=== PATIENT | female | born 1935 | race Two or more races ===

== ENCOUNTER 2016-10-26 16:46 | Emergency (ER) | payer OTHER ==
[~2016-10-26] VITALS: Ht 162.6 cm; Wt 87.3 kg
[~2016-10-26 16:46] MED LIST: ABAC1TAB15 PO; ALBU8.5H3 IH; AMIT25TA34 PO; ASPI-1061 PO; ATAZ100 PO; BUPR-47 PO; EPIV150 PO; LOPE2CAP PO; MULT-1203 PO; TRAM50TA4 PO
[2016-10-26] MEDS ORDERED: METF500T4 PO (17:05)
[2016-10-26] MEDS ORDERED: ABAC1TAB15 PO (17:05)
[2016-10-26] MEDS ORDERED: RISP2 PO (17:05)
[2016-10-26] MEDS ORDERED: SERT50TA12 PO (17:05)
[2016-10-26] MEDS ORDERED: TIMO.5OS OU (17:05)
[2016-10-26] MEDS ORDERED: FAMO20 PO (17:05)
[2016-10-26 17:12] LABS: GLUCOSE,POINT OF CARE 120 MG/DL (70-110)
[2016-10-26 17:42] LABS: BASOPHILS % (AUTO) 0.5 % (0.0-2.0); EOSINOPHILS % (AUTO) 3.7 % (1.0-6.0); HEMATOCRIT 41.6 % (36-46); HEMOGLOBIN 13.2 g/dL (12.0-16.0); LYMPHOCYTES # (AUTO) 3.9 K/uL (1.0-4.8); LYMPHOCYTES % (AUTO) 29.2 % (22.0-44.0); MEAN CORPUSCULAR HEMOGLOBIN 30.4 pg (26.0-34.0); MEAN CORPUSCULAR HGB CONC 31.7 G/dL (31.0-37.0); MEAN CORPUSCULAR VOLUME 96 fL (80-100); MONOCYTES # (AUTO) 0.9 K/uL (0.1-1.0); MONOCYTES % (AUTO) 6.6 % (2.0-9.0); PLATELET COUNT (AUTO) 284 K/uL (150-450); RED BLOOD CELL COUNT(AUTO) 4.34 MIL/uL (4.00-5.20); RED CELL DISTRIBUTION WIDTH 13.8 % (11.5-14.5); WHITE BLOOD COUNT (AUTO) 13.3 K/uL (4.5-11.0)
[2016-10-26 17:52] LABS: CALCIUM, TOTAL 8.9 mg/dL (8.8-10.5); CREATININE 1.63 mg/dL (0.60-1.30); POTASSIUM 4.5 mmol/L (3.5-5.1)
[2016-10-26 17:58] LABS: ALBUMIN 3.4 g/dL (3.4-5.0); BILIRUBIN,TOTAL 0.2 mg/dL (0.1-1.0); TOTAL PROTEIN, SERUM 7.9 g/dL (6.4-8.2)
[2016-10-26] MEDS ORDERED: 0.9% SODIUM CHLORIDE 5 ML NEB SOLUTION NEB ONE (19:24)
[2016-10-26] MEDS: ALBUTEROL SULFATE 2.5 MG/0.5 ML NEB SOLUTION NEB ONE (19:27)
[2016-10-26 20:20] VITALS: BP 126/81
== END 2016-10-26 20:41 | disposition home or self-care (01) ==
LOC: EMS 16:51
DX: J40 Bronchitis, not specified as acute or chronic (principal); J45.909 Unspecified asthma, uncomplicated; Z79.82 Long term (current) use of aspirin; Z87.891 Personal history of nicotine dependence
CPT/HCPCS: 82962; 93005; 94640; 99285

== ENCOUNTER 2016-11-21 16:01 | Emergency (ER) | payer OTHER ==
[~2016-11-21] VITALS: Ht 170.2 cm; Wt 72.7 kg
[~2016-11-21 16:01] MED LIST changes: -ALBU8.5H3 IH; -AMIT25TA34 PO; -ATAZ100 PO; -EPIV150 PO; +FAMO20 PO; -LOPE2CAP PO; +METF500T4 PO; +RISP2 PO; +SERT50TA12 PO; +TIMO.5OS OU
[2016-11-21] MEDS ORDERED: DIPH25 PO (16:19)
[2016-11-21] MEDS ORDERED: ACETAMINOPHEN 325 MG TABLET PO ONE (16:45)
[2016-11-21 18:04] LABS: BASOPHILS % (AUTO) 0.6 % (0.0-2.0); EOSINOPHILS % (AUTO) 3.6 % (1.0-6.0); HEMATOCRIT 38.7 % (36-46); HEMOGLOBIN 12.9 g/dL (12.0-16.0); LYMPHOCYTES # (AUTO) 3.9 K/uL (1.0-4.8); MEAN CORPUSCULAR HEMOGLOBIN 31.7 pg (26.0-34.0); MEAN CORPUSCULAR HGB CONC 33.3 G/dL (31.0-37.0); MEAN CORPUSCULAR VOLUME 95 fL (80-100); MONOCYTES # (AUTO) 0.8 K/uL (0.1-1.0); MONOCYTES % (AUTO) 7.5 % (2.0-9.0); NEUTROPHILS # (AUTO) 5.4 K/uL (1.8-7.7); NEUTROPHILS % (AUTO) 51.3 % (40.0-70.0); PLATELET COUNT (AUTO) 265 K/uL (150-450); RED BLOOD CELL COUNT(AUTO) 4.07 MIL/uL (4.00-5.20); WHITE BLOOD COUNT (AUTO) 10.4 K/uL (4.5-11.0)
[2016-11-21 18:15] LABS: CALCIUM, TOTAL 8.7 mg/dL (8.8-10.5); CREATININE 1.5 mg/dL (0.60-1.30); POTASSIUM 3.8 mmol/L (3.5-5.1)
[2016-11-21 18:28] LABS: ALBUMIN 3.3 g/dL (3.4-5.0); BILIRUBIN,TOTAL 0.2 mg/dL (0.1-1.0); TOTAL PROTEIN, SERUM 7.3 g/dL (6.4-8.2)
[2016-11-21 19:18] VITALS: BP 134/86
== END 2016-11-21 19:19 | disposition home or self-care (01) ==
LOC: EMS 16:06
DX: J45.909 Unspecified asthma, uncomplicated (principal); Z87.891 Personal history of nicotine dependence; Z79.82 Long term (current) use of aspirin
CPT/HCPCS: 71020; 83605; 87040; 99285

== ENCOUNTER 2017-12-13 14:49 | Emergency (ER) | payer OTHER ==
[~2017-12-13] VITALS: Ht 160 cm; Wt 87.3 kg
[~2017-12-13 14:49] MED LIST changes: -ASPI-1061 PO; +ASPI81TA87 PO; +DIPH25 PO; -METF500T4 PO; +METF500T6 PO
[2017-12-13] MEDS ORDERED: OMEP20 PO (14:58)
[2017-12-13] MEDS ORDERED: DOCU250C91 PO (14:58)
[2017-12-13 15:08] LABS: GLUCOSE,POINT OF CARE 195 MG/DL (70-110)
[2017-12-13] MEDS ORDERED: SODIUM CHLORIDE 0.9% 1,000 ML IV ONE (16:00)
[2017-12-13] MEDS ORDERED: ACETAMINOPHEN 500 MG TABLET PO ONE (16:00)
[2017-12-13 16:25] LABS: CALCIUM, TOTAL 8.7 mg/dL (8.8-10.5); CREATININE 1.65 mg/dL (0.60-1.30); POTASSIUM 3.8 mmol/L (3.5-5.1)
[2017-12-13 16:31] LABS: ALBUMIN 3.4 g/dL (3.4-5.0); BILIRUBIN,TOTAL 0.5 mg/dL (0.1-1.0); TOTAL PROTEIN, SERUM 7.3 g/dL (6.4-8.2)
[2017-12-13 17:13] LABS: BASOPHILS % (AUTO) 0.7 % (0.0-2.0); EOSINOPHILS % (AUTO) 0.7 % (1.0-6.0); HEMATOCRIT 36.7 % (36-46); HEMOGLOBIN 12.2 g/dL (12.0-16.0); LYMPHOCYTES # (AUTO) 2.3 K/uL (1.0-4.8); MEAN CORPUSCULAR HEMOGLOBIN 31.6 pg (26.0-34.0); MEAN CORPUSCULAR HGB CONC 33.1 G/dL (31.0-37.0); MEAN CORPUSCULAR VOLUME 96 fL (80-100); MONOCYTES # (AUTO) 0.8 K/uL (0.1-1.0); MONOCYTES % (AUTO) 6.1 % (2.0-9.0); NEUTROPHILS # (AUTO) 9.4 K/uL (1.8-7.7); NEUTROPHILS % (AUTO) 74.5 % (40.0-70.0); PLATELET COUNT (AUTO) 218 K/uL (150-450); RED BLOOD CELL COUNT(AUTO) 3.84 MIL/uL (4.00-5.20); RED CELL DISTRIBUTION WIDTH 14.4 % (11.5-14.5)
[2017-12-13 18:30] LABS: APPEARANCE,URINE CLEAR (CLEAR); BILIRUBIN,URINE NEGATIVE (NEGATIVE); GLUCOSE, URINE (UA) NEGATIVE (NEGATIVE); KETONES,URINE NEGATIVE (NEGATIVE); LEUKOCYTE ESTERASE ,URINE MODERATE (NEGATIVE); NITRATE,URINE NEGATIVE (NEGATIVE); OCCULT BLOOD,URINE NEGATIVE (NEGATIVE); PH,URINE 6.5 (5.0-8.0); PROTEIN,URINE NEGATIVE (NEGATIVE); UROBILINOGEN,URINE 0.2 mg/dL (<=1.0)
[2017-12-13 18:51] LABS: BACTERIA,URINE Rare /HPF (None Seen); RBC,URINE None Seen /HPF (0-2); SQUAMOUS EPITHELIAL CELL,UR Few /LPF (None Seen)
[2017-12-13 19:24] VITALS: BP 131/75
== END 2017-12-13 19:47 | disposition home or self-care (01) ==
LOC: EMS 14:50
DX: E86.0 Dehydration (principal); N39.0 Urinary tract infection, site not specified; R55 Syncope and collapse; M25.551 Pain in right hip; M25.552 Pain in left hip; M25.561 Pain in right knee; M25.562 Pain in left knee; J45.909 Unspecified asthma, uncomplicated; Z87.891 Personal history of nicotine dependence
CPT/HCPCS: 36415; 71045; 80053; 81001; 82962; 85025; 87086; 93005; 99285; J7030

== ENCOUNTER 2018-09-23 23:33 | Emergency (ER) | payer OTHER ==
[~2018-09-23] VITALS: Ht 160 cm; Wt 81.8 kg
[~2018-09-23 23:33] MED LIST changes: -DIPH25 PO; +DOCU250C91 PO; -FAMO20 PO; +METF-960 PO; -METF500T6 PO; +OMEP20 PO; -RISP2 PO
[2018-09-24] MEDS ORDERED: ALBUTEROL SULFATE 2.5 MG/0.5 ML NEB SOLUTION NEB ONE ×2 (02:45→04:15)
[2018-09-24] MEDS ORDERED: IPRATROPIUM BROMIDE 0.5 MG/2.5 ML NEB SOLUTION NEB ONE ×2 (02:45→04:15)
[2018-09-24 03:36] LABS: BASOPHILS % (AUTO) 0.6 % (0.0-2.0); EOSINOPHILS % (AUTO) 3.5 % (1.0-6.0); HEMOGLOBIN 12.3 g/dL (12.0-16.0); LYMPHOCYTES # (AUTO) 4.2 K/uL (1.0-4.8); LYMPHOCYTES % (AUTO) 34.6 % (22.0-44.0); MEAN CORPUSCULAR HEMOGLOBIN 30.9 pg (26.0-34.0); MEAN CORPUSCULAR HGB CONC 32.3 G/dL (31.0-37.0); MEAN CORPUSCULAR VOLUME 96 fL (80-100); MONOCYTES # (AUTO) 1.2 K/uL (0.1-1.0); MONOCYTES % (AUTO) 10.2 % (2.0-9.0); NEUTROPHILS # (AUTO) 6.1 K/uL (1.8-7.7); NEUTROPHILS % (AUTO) 51.1 % (40.0-70.0); PLATELET COUNT (AUTO) 236 K/uL (150-450); RED BLOOD CELL COUNT(AUTO) 3.98 MIL/uL (4.00-5.20); RED CELL DISTRIBUTION WIDTH 13.8 % (11.5-14.5)
[2018-09-24 03:40] LABS: CALCIUM, TOTAL 9.3 mg/dL (8.8-10.5); CREATININE 2.11 mg/dL (0.60-1.30); POTASSIUM 3.8 mmol/L (3.5-5.1)
[2018-09-24 03:41] LABS: PROTHROMBIN TIME 10.6 SEC (9.4-11.6)
[2018-09-24 04:05] LABS: ALBUMIN 3.1 g/dL (3.4-5.0); BILIRUBIN,TOTAL 0.3 mg/dL (0.1-1.0); TOTAL PROTEIN, SERUM 7.7 g/dL (6.4-8.2)
[2018-09-24] MEDS ORDERED: AZITHROMYCIN 250 MG TABLET PO ONE (04:45)
[2018-09-24 05:37] VITALS: BP 137/79
== END 2018-09-24 05:55 | disposition home or self-care (01) ==
LOC: EMS 23:34
DX: J98.01 Acute bronchospasm (principal); J40 Bronchitis, not specified as acute or chronic; F41.9 Anxiety disorder, unspecified; Z87.891 Personal history of nicotine dependence; Z79.82 Long term (current) use of aspirin; Z79.899 Other long term (current) drug therapy
CPT/HCPCS: 93005; 94640

== ENCOUNTER 2019-01-31 14:39 | Emergency (ER) | payer OTHER ==
[~2019-01-31] VITALS: Ht 160 cm; Wt 85.9 kg
[2019-01-31] MEDS ORDERED: SODIUM CHLORIDE 0.9% 1,000 ML IV ONE (17:54)
[2019-01-31] MEDS ORDERED: KETOROLAC TROMETHAMINE 30 MG/ML VIAL IVP ONE (18:00)
[2019-01-31] MEDS ORDERED: ONDANSETRON HCL 4 MG/2 ML VIAL IVP ONE (18:00)
[2019-01-31 18:30] LABS: BASOPHILS % (AUTO) 0.9 % (0.0-2.0); EOSINOPHILS % (AUTO) 4.1 % (1.0-6.0); HEMATOCRIT 36.1 % (36-46); HEMOGLOBIN 11.2 g/dL (12.0-16.0); LYMPHOCYTES # (AUTO) 4.4 K/uL (1.0-4.8); MEAN CORPUSCULAR HEMOGLOBIN 29.8 pg (26.0-34.0); MEAN CORPUSCULAR HGB CONC 31.1 G/dL (31.0-37.0); MEAN CORPUSCULAR VOLUME 96 fL (80-100); MONOCYTES # (AUTO) 0.9 K/uL (0.1-1.0); MONOCYTES % (AUTO) 6.9 % (2.0-9.0); NEUTROPHILS # (AUTO) 6.9 K/uL (1.8-7.7); NEUTROPHILS % (AUTO) 54.1 % (40.0-70.0); PLATELET COUNT (AUTO) 300 K/uL (150-450); RED BLOOD CELL COUNT(AUTO) 3.76 MIL/uL (4.00-5.20); RED CELL DISTRIBUTION WIDTH 14.6 % (11.5-14.5)
[2019-01-31 18:39] LABS: CALCIUM, TOTAL 9.1 mg/dL (8.8-10.5); CREATININE 1.6 mg/dL (0.60-1.30); POTASSIUM 3.8 mmol/L (3.5-5.1)
[2019-01-31 18:45] LABS: ALBUMIN 3.1 g/dL (3.4-5.0); BILIRUBIN,TOTAL 0.3 mg/dL (0.1-1.0); TOTAL PROTEIN, SERUM 7.5 g/dL (6.4-8.2)
[2019-01-31 19:55] LABS: APPEARANCE,URINE CLEAR (CLEAR); BILIRUBIN,URINE NEGATIVE (NEGATIVE); GLUCOSE, URINE (UA) NEGATIVE (NEGATIVE); KETONES,URINE NEGATIVE (NEGATIVE); LEUKOCYTE ESTERASE ,URINE TRACE (NEGATIVE); NITRATE,URINE NEGATIVE (NEGATIVE); OCCULT BLOOD,URINE NEGATIVE (NEGATIVE); PH,URINE 6.5 (5.0-8.0); PROTEIN,URINE NEGATIVE (NEGATIVE); UROBILINOGEN,URINE 0.2 mg/dL (<=1.0)
[2019-01-31 20:16] LABS: BACTERIA,URINE None Seen /HPF (None Seen); RBC,URINE None Seen /HPF (0-2); SQUAMOUS EPITHELIAL CELL,UR Few /LPF (None Seen)
[2019-01-31 21:30] VITALS: BP 121/78
== END 2019-01-31 21:34 | disposition home or self-care (01) ==
LOC: EMS 14:40
DX: R31.9 Hematuria, unspecified (principal); F41.9 Anxiety disorder, unspecified; J45.909 Unspecified asthma, uncomplicated; Z85.42 Personal history of malignant neoplasm of other parts of uterus; Z90.710 Acquired absence of both cervix and uterus; Z79.84 Long term (current) use of oral hypoglycemic drugs; Z79.82 Long term (current) use of aspirin

== ENCOUNTER 2022-10-10 11:56 | Inpatient (IN) | payer OTHER ==
[~2022-10-10] VITALS: Ht 160 cm; Wt 81.8 kg
[~2022-10-10 11:56] MED LIST changes: -BUPR-47 PO; +BUPR-49 PO; +METF-1211 PO; -METF-960 PO; +SERT-158 PO; -SERT50TA12 PO; -TIMO.5OS OU; +TIMO5DRO21 OU; +TRAM-559 PO; -TRAM50TA4 PO
[2022-10-10] MEDS ORDERED: IPRATROPIUM BROMIDE 0.5 MG/2.5 ML NEB SOLUTION NEB ONE (12:30)
[2022-10-10] MEDS ORDERED: ALBUTEROL SULFATE 2.5 MG/0.5 ML NEB SOLUTION NEB ONE (12:30)
[2022-10-10] MEDS ORDERED: PredniSONE 20 MG TABLET PO ONE (12:30)
[2022-10-10 12:38] LABS: COVID AG,FIA SOURCE NASOPHARYNGEAL
[2022-10-10 12:43] LABS: BASOPHILS % (AUTO) 0.5 % (0.0-2.0); EOSINOPHILS % (AUTO) 0.2 % (1.0-6.0); HEMATOCRIT 36.6 % (36-46); HEMOGLOBIN 11.8 g/dL (12.0-16.0); LYMPHOCYTES # (AUTO) 1.9 K/uL (1.0-4.8); LYMPHOCYTES % (AUTO) 7.9 % (22.0-44.0); MEAN CORPUSCULAR HEMOGLOBIN 32.4 pg (26.0-34.0); MEAN CORPUSCULAR HGB CONC 32.4 G/dL (31.0-37.0); MEAN CORPUSCULAR VOLUME 100 fL (80-100); MONOCYTES # (AUTO) 1.3 K/uL (0.1-1.0); MONOCYTES % (AUTO) 5.6 % (2.0-9.0); NEUTROPHILS # (AUTO) 20.7 K/uL (1.8-7.7); NEUTROPHILS % (AUTO) 85.8 % (40.0-70.0); PLATELET COUNT (AUTO) 270 K/uL (150-450); RED BLOOD CELL COUNT(AUTO) 3.66 MIL/uL (4.00-5.20)
[2022-10-10 12:49] LABS: CALCIUM, TOTAL 9.4 mg/dL (8.8-10.5); CREATININE 1.56 mg/dL (0.60-1.30); POTASSIUM 4.4 mmol/L (3.5-5.1)
[2022-10-10] MEDS ORDERED: ONDANSETRON HCL 4 MG/2 ML VIAL IVP PRN (13:00)
[2022-10-10] MEDS ORDERED: MAGNESIUM HYDROXIDE SUSPENSION 30 ML UDCUP PO PRN (13:00)
[2022-10-10] MEDS ORDERED: AZITHROMYCIN 500 MG/NS 250 ML IV ONE (13:00)
[2022-10-10] MEDS ORDERED: MORPHINE SULFATE 2 MG/ML SYRINGE IVP PRN (13:00)
[2022-10-10] MEDS ORDERED: *CLINICAL-LEVOFLOXACIN IVPB DOSING CLINICAL ONE (13:00)
[2022-10-10] MEDS ORDERED: BISACODYL 10 MG RECTAL RECTAL SUPPOSITORY PR PRN (13:00)
[2022-10-10] MEDS ORDERED: CefTRIAXone 1 GM/DEXTROSE 50 ML IV ONE (13:00)
[2022-10-10] MEDS ORDERED: DEXTROSE 50%-WATER 25 GM/50 ML SYRINGE IVP PRN (13:00)
[2022-10-10] MEDS ORDERED: SODIUM CHLORIDE 0.9% 1,000 ML IV ONE ×2 (13:15→14:00)
[2022-10-10 13:43] LABS: LACTIC ACID 2.4 mmol/L (0.4-2.0)
[2022-10-10] MEDS: GuaiFENesin/D-METHORPHAN/PHENYLEPH 5 ML LIQUID ORAL.SYG PO PRN ×2 (14:18→23:09)
[2022-10-10 15:41] VITALS: BP 129/62
[2022-10-10] MEDS: HEPARIN SODIUM,PORCINE 5,000 UNITS/ML VIAL SQ SCH ×2 (16:13→23:13)
[2022-10-10] MEDS ORDERED: MetFORMIN HCL 500 MG TABLET PO SCH (17:30)
[2022-10-10] MEDS: HYDROCODONE/ACETAMINOPHEN 5-325 MG TABLET PO PRN (17:52)
[2022-10-10] MEDS: INSULIN LISPRO 100 UNITS/ML SQ PRN ×2 (17:53→23:33)
[2022-10-10 18:16] LABS: GLUCOMETER DEV NAME(LOC) 6N.1; GLUCOSE,POINT OF CARE 219 MG/DL (70-110)
[2022-10-10] MEDS: DOCUSATE SODIUM 100 MG CAPSULE PO SCH (19:50)
[2022-10-10] MEDS ORDERED: SODIUM CHLORIDE 0.9% 500 ML IV ONE (20:01)
[2022-10-10 20:11] VITALS: BP 121/75
[2022-10-10] MEDS ORDERED: DOXYCYCLINE HYCLATE 100 MG TABLET PO SCH (21:00)
[2022-10-10] MEDS: ZOLPIDEM TARTRATE 5 MG TABLET PO PRN (23:09)
[2022-10-10 23:47] VITALS: BP 118/68
[2022-10-11 02:31] LABS: GLUCOMETER DEV NAME(LOC) 6N.2B; GLUCOSE,POINT OF CARE 278 MG/DL (70-110)
[2022-10-11 04:33] VITALS: BP 127/57
[2022-10-11] MEDS: INSULIN LISPRO 100 UNITS/ML SQ PRN ×2 (05:59→20:22)
[2022-10-11 06:01] LABS: GLUCOMETER DEV NAME(LOC) 6N.2B; GLUCOSE,POINT OF CARE 167 MG/DL (70-110)
[2022-10-11 07:03] LABS: HEMATOCRIT 32.2 % (36-46); HEMOGLOBIN 10.6 g/dL (12.0-16.0); MEAN CORPUSCULAR HEMOGLOBIN 32.7 pg (26.0-34.0); MEAN CORPUSCULAR VOLUME 99 fL (80-100); PLATELET COUNT (AUTO) 268 K/uL (150-450); RED BLOOD CELL COUNT(AUTO) 3.26 MIL/uL (4.00-5.20); RED CELL DISTRIBUTION WIDTH 15.1 % (11.5-14.5)
[2022-10-11 07:14] LABS: CREATININE 1.32 mg/dL (0.60-1.30); POTASSIUM 4.1 mmol/L (3.5-5.1)
[2022-10-11] MEDS: PANTOPRAZOLE SODIUM 40 MG DR TABLET PO SCH (07:38)
[2022-10-11] MEDS: ATORVASTATIN CALCIUM 40 MG TABLET PO SCH (07:39)
[2022-10-11] MEDS: TraMADol HCL 50 MG TABLET PO SCH (07:39)
[2022-10-11] MEDS: SERTRALINE HCL 50 MG TABLET PO SCH (07:41)
[2022-10-11] MEDS: DOCUSATE SODIUM 100 MG CAPSULE PO SCH ×2 (07:41→20:22)
[2022-10-11] MEDS: ASPIRIN 81 MG DR TABLET PO SCH (07:42)
[2022-10-11] MEDS: ABACAVIR SULFATE 300 MG TABLET PO SCH (07:42)
[2022-10-11] MEDS: DOLUTEGRAVIR SODIUM 50 MG TABLET PO SCH (07:43)
[2022-10-11] MEDS: BuPROPion HCL XL 150 MG ER TABLET PO SCH (07:43)
[2022-10-11] MEDS: TIMOLOL MALEATE 0.5% 5 ML OPHTHALMIC SOLUTION OU SCH (07:44)
[2022-10-11] MEDS: HEPARIN SODIUM,PORCINE 5,000 UNITS/ML VIAL SQ SCH ×3 (07:44→23:11)
[2022-10-11] MEDS: GuaiFENesin/D-METHORPHAN/PHENYLEPH 5 ML LIQUID ORAL.SYG PO PRN ×2 (07:45→18:22)
[2022-10-11 08:00] VITALS: BP 109/62
[2022-10-11 08:08] VITALS: BP 147/58
[2022-10-11 09:02] LABS: BAND NEUTROPHILS % (MANUAL) 27 % (0-5); LYMPHOCYTES % (MANUAL) 13 % (22-44); MONOCYTES % (MANUAL) 2 % (2-9); SEGMENTED NEUTROPHILS % 58 % (40-70)
[2022-10-11 11:21] LABS: GLUCOMETER DEV NAME(LOC) 6N.2B; GLUCOSE,POINT OF CARE 140 MG/DL (70-110)
[2022-10-11] MEDS ORDERED: SODIUM CHLORIDE 0.9% 500 ML IV ONE (11:31)
[2022-10-11] MEDS: LEVOFLOXACIN 750 MG/D5% WATER 150 ML IV SCH (12:12)
[2022-10-11 15:22] VITALS: BP 140/84
[2022-10-11 19:51] VITALS: BP 126/63
[2022-10-11 19:56] LABS: GLUCOMETER DEV NAME(LOC) 6N.2B; GLUCOSE,POINT OF CARE 115 MG/DL (70-110)
[2022-10-11] MEDS: ZOLPIDEM TARTRATE 5 MG TABLET PO PRN (20:25)
[2022-10-11] MEDS: HYDROCODONE/ACETAMINOPHEN 5-325 MG TABLET PO PRN (23:10)
[2022-10-12 04:40] VITALS: BP 138/78
[2022-10-12] MEDS: HYDROCODONE/ACETAMINOPHEN 5-325 MG TABLET PO PRN ×3 (05:49→19:44)
[2022-10-12] MEDS: GuaiFENesin/D-METHORPHAN/PHENYLEPH 5 ML LIQUID ORAL.SYG PO PRN ×3 (05:49→19:46)
[2022-10-12 06:46] LABS: GLUCOMETER DEV NAME(LOC) 6N.1; GLUCOSE,POINT OF CARE 143 MG/DL (70-110)
[2022-10-12 07:23] LABS: BASOPHILS % (AUTO) 0.4 % (0.0-2.0); EOSINOPHILS % (AUTO) 1.6 % (1.0-6.0); HEMATOCRIT 31.9 % (36-46); HEMOGLOBIN 10.5 g/dL (12.0-16.0); LYMPHOCYTES # (AUTO) 2.1 K/uL (1.0-4.8); LYMPHOCYTES % (AUTO) 12.5 % (22.0-44.0); MEAN CORPUSCULAR HEMOGLOBIN 32.5 pg (26.0-34.0); MEAN CORPUSCULAR HGB CONC 32.9 G/dL (31.0-37.0); MEAN CORPUSCULAR VOLUME 99 fL (80-100); MONOCYTES # (AUTO) 1.2 K/uL (0.1-1.0); MONOCYTES % (AUTO) 7.2 % (2.0-9.0); NEUTROPHILS # (AUTO) 12.9 K/uL (1.8-7.7); NEUTROPHILS % (AUTO) 78.3 % (40.0-70.0); PLATELET COUNT (AUTO) 297 K/uL (150-450); RED BLOOD CELL COUNT(AUTO) 3.23 MIL/uL (4.00-5.20); RED CELL DISTRIBUTION WIDTH 14.6 % (11.5-14.5)
[2022-10-12 07:42] VITALS: BP 128/76
[2022-10-12 07:42] LABS: CALCIUM, TOTAL 9.3 mg/dL (8.8-10.5); CREATININE 1.39 mg/dL (0.60-1.30); POTASSIUM 4.4 mmol/L (3.5-5.1)
[2022-10-12] MEDS: ATORVASTATIN CALCIUM 40 MG TABLET PO SCH (08:09)
[2022-10-12] MEDS: TraMADol HCL 50 MG TABLET PO SCH (08:09)
[2022-10-12] MEDS: HEPARIN SODIUM,PORCINE 5,000 UNITS/ML VIAL SQ SCH ×3 (08:09→23:45)
[2022-10-12] MEDS: SERTRALINE HCL 50 MG TABLET PO SCH (08:09)
[2022-10-12] MEDS: PANTOPRAZOLE SODIUM 40 MG DR TABLET PO SCH (08:10)
[2022-10-12] MEDS: DOLUTEGRAVIR SODIUM 50 MG TABLET PO SCH (08:10)
[2022-10-12] MEDS: ASPIRIN 81 MG DR TABLET PO SCH (08:11)
[2022-10-12] MEDS: BuPROPion HCL XL 150 MG ER TABLET PO SCH (08:11)
[2022-10-12] MEDS: ABACAVIR SULFATE 300 MG TABLET PO SCH (08:11)
[2022-10-12] MEDS: DOCUSATE SODIUM 100 MG CAPSULE PO SCH ×2 (08:12→19:49)
[2022-10-12 08:43] VITALS: BP 128/52
[2022-10-12] MEDS: TIMOLOL MALEATE 0.5% 5 ML OPHTHALMIC SOLUTION OU SCH (10:54)
[2022-10-12 11:46] LABS: GLUCOMETER DEV NAME(LOC) 6N.2B; GLUCOSE,POINT OF CARE 137 MG/DL (70-110)
[2022-10-12 11:56] LABS: GLUCOMETER DEV NAME(LOC) 6N.2B; GLUCOSE,POINT OF CARE 129 MG/DL (70-110)
[2022-10-12] MEDS ORDERED: *CLINICAL-LEVOFLOXACIN IVPB DOSING CLINICAL ONE (14:30)
[2022-10-12 15:18] VITALS: BP 125/67
[2022-10-12 17:56] LABS: GLUCOMETER DEV NAME(LOC) 6N.2B; GLUCOSE,POINT OF CARE 140 MG/DL (70-110)
[2022-10-12 19:48] VITALS: BP 128/74
[2022-10-12] MEDS: ZOLPIDEM TARTRATE 5 MG TABLET PO PRN (21:59)
[2022-10-12] MEDS: INSULIN LISPRO 100 UNITS/ML SQ PRN (21:59)
[2022-10-13 01:21] LABS: GLUCOMETER DEV NAME(LOC) 6N.2B; GLUCOSE,POINT OF CARE 194 MG/DL (70-110)
[2022-10-13 04:09] VITALS: BP 134/68
[2022-10-13] MEDS: INSULIN LISPRO 100 UNITS/ML SQ PRN ×2 (05:58→17:42)
[2022-10-13] MEDS: HYDROCODONE/ACETAMINOPHEN 5-325 MG TABLET PO PRN (05:59)
[2022-10-13] MEDS: GuaiFENesin/D-METHORPHAN/PHENYLEPH 5 ML LIQUID ORAL.SYG PO PRN ×3 (06:00→21:13)
[2022-10-13 07:25] LABS: GLUCOMETER DEV NAME(LOC) 6N.2B; GLUCOSE,POINT OF CARE 164 MG/DL (70-110)
[2022-10-13 07:46] LABS: BASOPHILS % (AUTO) 0.6 % (0.0-2.0); HEMATOCRIT 31.9 % (36-46); HEMOGLOBIN 10.4 g/dL (12.0-16.0); LYMPHOCYTES % (AUTO) 14.6 % (22.0-44.0); MEAN CORPUSCULAR HEMOGLOBIN 32.1 pg (26.0-34.0); MEAN CORPUSCULAR HGB CONC 32.6 G/dL (31.0-37.0); MEAN CORPUSCULAR VOLUME 98 fL (80-100); MONOCYTES % (AUTO) 7.1 % (2.0-9.0); NEUTROPHILS % (AUTO) 73.7 % (40.0-70.0); PLATELET COUNT (AUTO) 316 K/uL (150-450); RED BLOOD CELL COUNT(AUTO) 3.24 MIL/uL (4.00-5.20); RED CELL DISTRIBUTION WIDTH 14.8 % (11.5-14.5)
[2022-10-13 07:55] LABS: CALCIUM, TOTAL 9.6 mg/dL (8.8-10.5); CREATININE 1.32 mg/dL (0.60-1.30); POTASSIUM 3.8 mmol/L (3.5-5.1)
[2022-10-13 08:00] VITALS: BP 129/74
[2022-10-13] MEDS: DOCUSATE SODIUM 100 MG CAPSULE PO SCH ×2 (08:10→21:13)
[2022-10-13] MEDS: PANTOPRAZOLE SODIUM 40 MG DR TABLET PO SCH (08:10)
[2022-10-13] MEDS: HEPARIN SODIUM,PORCINE 5,000 UNITS/ML VIAL SQ SCH ×2 (08:10→16:35)
[2022-10-13] MEDS: ASPIRIN 81 MG DR TABLET PO SCH (08:11)
[2022-10-13] MEDS: TIMOLOL MALEATE 0.5% 5 ML OPHTHALMIC SOLUTION OU SCH (08:11)
[2022-10-13] MEDS: ABACAVIR SULFATE 300 MG TABLET PO SCH (08:12)
[2022-10-13] MEDS: DOLUTEGRAVIR SODIUM 50 MG TABLET PO SCH (08:12)
[2022-10-13] MEDS: BuPROPion HCL XL 150 MG ER TABLET PO SCH (08:12)
[2022-10-13] MEDS: TraMADol HCL 50 MG TABLET PO SCH (08:13)
[2022-10-13] MEDS: SERTRALINE HCL 50 MG TABLET PO SCH (08:16)
[2022-10-13] MEDS: ATORVASTATIN CALCIUM 40 MG TABLET PO SCH (08:16)
[2022-10-13] MEDS: LEVOFLOXACIN 750 MG/D5% WATER 150 ML IV SCH (13:06)
[2022-10-13 13:22] LABS: GLUCOMETER DEV NAME(LOC) 6N.1; GLUCOSE,POINT OF CARE 123 MG/DL (70-110)
[2022-10-13 15:00] VITALS: BP 130/75
[2022-10-13 18:31] LABS: GLUCOMETER DEV NAME(LOC) 6N.1; GLUCOSE,POINT OF CARE 149 MG/DL (70-110)
[2022-10-13 20:08] VITALS: BP 118/61
[2022-10-13] MEDS: ZOLPIDEM TARTRATE 5 MG TABLET PO PRN (21:13)
[2022-10-14] MEDS: HEPARIN SODIUM,PORCINE 5,000 UNITS/ML VIAL SQ SCH ×3 (00:04→15:42)
[2022-10-14 01:06] LABS: GLUCOMETER DEV NAME(LOC) 6N.1; GLUCOSE,POINT OF CARE 110 MG/DL (70-110)
[2022-10-14 04:20] VITALS: BP 124/61
[2022-10-14] MEDS: GuaiFENesin/D-METHORPHAN/PHENYLEPH 5 ML LIQUID ORAL.SYG PO PRN ×2 (05:25→15:42)
[2022-10-14] MEDS: HYDROCODONE/ACETAMINOPHEN 5-325 MG TABLET PO PRN (05:25)
[2022-10-14] MEDS: INSULIN LISPRO 100 UNITS/ML SQ PRN ×2 (06:06→20:12)
[2022-10-14 06:46] LABS: GLUCOMETER DEV NAME(LOC) 6N.2B; GLUCOSE,POINT OF CARE 144 MG/DL (70-110)
[2022-10-14 06:46] LABS: BASOPHILS % (AUTO) 0.8 % (0.0-2.0); EOSINOPHILS % (AUTO) 3.2 % (1.0-6.0); HEMATOCRIT 31.6 % (36-46); HEMOGLOBIN 10.6 g/dL (12.0-16.0); LYMPHOCYTES # (AUTO) 2.4 K/uL (1.0-4.8); MEAN CORPUSCULAR HEMOGLOBIN 32.9 pg (26.0-34.0); MEAN CORPUSCULAR HGB CONC 33.6 G/dL (31.0-37.0); MEAN CORPUSCULAR VOLUME 98 fL (80-100); MONOCYTES % (AUTO) 8.3 % (2.0-9.0); NEUTROPHILS # (AUTO) 8.7 K/uL (1.8-7.7); NEUTROPHILS % (AUTO) 68.7 % (40.0-70.0); PLATELET COUNT (AUTO) 332 K/uL (150-450); RED BLOOD CELL COUNT(AUTO) 3.23 MIL/uL (4.00-5.20); RED CELL DISTRIBUTION WIDTH 14.8 % (11.5-14.5)
[2022-10-14 07:17] LABS: CALCIUM, TOTAL 9.3 mg/dL (8.8-10.5); CREATININE 1.33 mg/dL (0.60-1.30); POTASSIUM 3.9 mmol/L (3.5-5.1)
[2022-10-14 08:34] VITALS: BP 128/64
[2022-10-14] MEDS: TraMADol HCL 50 MG TABLET PO SCH (08:43)
[2022-10-14] MEDS: DOLUTEGRAVIR SODIUM 50 MG TABLET PO SCH (08:43)
[2022-10-14] MEDS: ABACAVIR SULFATE 300 MG TABLET PO SCH (08:43)
[2022-10-14] MEDS: BuPROPion HCL XL 150 MG ER TABLET PO SCH (08:44)
[2022-10-14] MEDS: PANTOPRAZOLE SODIUM 40 MG DR TABLET PO SCH (08:44)
[2022-10-14] MEDS: TIMOLOL MALEATE 0.5% 5 ML OPHTHALMIC SOLUTION OU SCH (08:44)
[2022-10-14] MEDS: SERTRALINE HCL 50 MG TABLET PO SCH (08:44)
[2022-10-14] MEDS: ATORVASTATIN CALCIUM 40 MG TABLET PO SCH (08:44)
[2022-10-14] MEDS: ASPIRIN 81 MG DR TABLET PO SCH (08:44)
[2022-10-14] MEDS: DOCUSATE SODIUM 100 MG CAPSULE PO SCH ×2 (08:45→20:02)
[2022-10-14 12:26] LABS: GLUCOMETER DEV NAME(LOC) 6N.1; GLUCOSE,POINT OF CARE 114 MG/DL (70-110)
[2022-10-14 15:32] VITALS: BP 124/68
[2022-10-14] MEDS: BENZONATATE 100 MG CAPSULE PO PRN (17:13)
[2022-10-14 17:41] LABS: GLUCOMETER DEV NAME(LOC) 6N.2B; GLUCOSE,POINT OF CARE 130 MG/DL (70-110)
[2022-10-14 20:03] VITALS: BP 118/66
[2022-10-14] MEDS: GuaiFENesin SR 600 MG ER TABLET PO SCH (20:03)
[2022-10-14] MEDS: ACETAMINOPHEN 325 MG TABLET PO PRN (20:04)
[2022-10-14 23:51] LABS: GLUCOMETER DEV NAME(LOC) 6N.1; GLUCOSE,POINT OF CARE 193 MG/DL (70-110)
[2022-10-15] MEDS: HEPARIN SODIUM,PORCINE 5,000 UNITS/ML VIAL SQ SCH ×4 (00:06→23:08)
[2022-10-15 04:47] VITALS: BP 120/63
[2022-10-15] MEDS: GuaiFENesin/D-METHORPHAN/PHENYLEPH 5 ML LIQUID ORAL.SYG PO PRN ×2 (05:31→14:48)
[2022-10-15] MEDS: ACETAMINOPHEN 325 MG TABLET PO PRN ×2 (05:32→20:09)
[2022-10-15 07:12] LABS: BASOPHILS % (AUTO) 0.8 % (0.0-2.0); EOSINOPHILS % (AUTO) 4.8 % (1.0-6.0); HEMATOCRIT 31.5 % (36-46); HEMOGLOBIN 10.6 g/dL (12.0-16.0); LYMPHOCYTES # (AUTO) 1.6 K/uL (1.0-4.8); LYMPHOCYTES % (AUTO) 13.5 % (22.0-44.0); MEAN CORPUSCULAR HEMOGLOBIN 33.2 pg (26.0-34.0); MEAN CORPUSCULAR HGB CONC 33.7 G/dL (31.0-37.0); MEAN CORPUSCULAR VOLUME 99 fL (80-100); MONOCYTES % (AUTO) 8.1 % (2.0-9.0); NEUTROPHILS # (AUTO) 8.8 K/uL (1.8-7.7); NEUTROPHILS % (AUTO) 72.8 % (40.0-70.0); PLATELET COUNT (AUTO) 345 K/uL (150-450); RED BLOOD CELL COUNT(AUTO) 3.19 MIL/uL (4.00-5.20); RED CELL DISTRIBUTION WIDTH 14.8 % (11.5-14.5)
[2022-10-15 07:24] LABS: CALCIUM, TOTAL 9.3 mg/dL (8.8-10.5); CREATININE 1.34 mg/dL (0.60-1.30)
[2022-10-15] MEDS: ATORVASTATIN CALCIUM 40 MG TABLET PO SCH (08:03)
[2022-10-15] MEDS: GuaiFENesin SR 600 MG ER TABLET PO SCH ×2 (08:03→20:09)
[2022-10-15] MEDS: PANTOPRAZOLE SODIUM 40 MG DR TABLET PO SCH (08:04)
[2022-10-15] MEDS: TraMADol HCL 50 MG TABLET PO SCH (08:04)
[2022-10-15] MEDS: ASPIRIN 81 MG DR TABLET PO SCH (08:04)
[2022-10-15] MEDS: BENZONATATE 100 MG CAPSULE PO PRN (08:04)
[2022-10-15] MEDS: BuPROPion HCL XL 150 MG ER TABLET PO SCH (08:05)
[2022-10-15] MEDS: SERTRALINE HCL 50 MG TABLET PO SCH (08:05)
[2022-10-15] MEDS: DOCUSATE SODIUM 100 MG CAPSULE PO SCH ×3 (08:05→20:22)
[2022-10-15] MEDS: ABACAVIR SULFATE 300 MG TABLET PO SCH (08:06)
[2022-10-15] MEDS: DOLUTEGRAVIR SODIUM 50 MG TABLET PO SCH (08:06)
[2022-10-15] MEDS: TIMOLOL MALEATE 0.5% 5 ML OPHTHALMIC SOLUTION OU SCH (08:07)
[2022-10-15 08:19] VITALS: BP 124/68
[2022-10-15 08:26] VITALS: BP 124/68
[2022-10-15 12:11] LABS: GLUCOMETER DEV NAME(LOC) 6N.1; GLUCOSE,POINT OF CARE 132 MG/DL (70-110)
[2022-10-15 12:11] LABS: GLUCOMETER DEV NAME(LOC) 6N.2B; GLUCOSE,POINT OF CARE 114 MG/DL (70-110)
[2022-10-15] MEDS: LEVOFLOXACIN 750 MG/D5% WATER 150 ML IV SCH (12:21)
[2022-10-15 17:26] LABS: GLUCOMETER DEV NAME(LOC) 6N.1; GLUCOSE,POINT OF CARE 120 MG/DL (70-110)
[2022-10-15 19:21] VITALS: BP 113/61
[2022-10-15] MEDS: INSULIN LISPRO 100 UNITS/ML SQ PRN (20:21)
[2022-10-15 21:41] LABS: GLUCOMETER DEV NAME(LOC) 6N.2B; GLUCOSE,POINT OF CARE 181 MG/DL (70-110)
[2022-10-16 04:28] VITALS: BP 102/64
[2022-10-16] MEDS: GuaiFENesin/D-METHORPHAN/PHENYLEPH 5 ML LIQUID ORAL.SYG PO PRN (05:58)
[2022-10-16] MEDS: ACETAMINOPHEN 325 MG TABLET PO PRN (05:59)
[2022-10-16 07:31] LABS: GLUCOMETER DEV NAME(LOC) 6N.2B; GLUCOSE,POINT OF CARE 107 MG/DL (70-110)
[2022-10-16 07:34] LABS: BASOPHILS % (AUTO) 0.7 % (0.0-2.0); EOSINOPHILS % (AUTO) 3.1 % (1.0-6.0); HEMATOCRIT 32.7 % (36-46); HEMOGLOBIN 10.8 g/dL (12.0-16.0); LYMPHOCYTES # (AUTO) 2.7 K/uL (1.0-4.8); LYMPHOCYTES % (AUTO) 25.4 % (22.0-44.0); MEAN CORPUSCULAR HEMOGLOBIN 32.3 pg (26.0-34.0); MEAN CORPUSCULAR HGB CONC 32.9 G/dL (31.0-37.0); MEAN CORPUSCULAR VOLUME 98 fL (80-100); MONOCYTES # (AUTO) 1.3 K/uL (0.1-1.0); MONOCYTES % (AUTO) 12.4 % (2.0-9.0); NEUTROPHILS # (AUTO) 6.1 K/uL (1.8-7.7); NEUTROPHILS % (AUTO) 58.4 % (40.0-70.0); PLATELET COUNT (AUTO) 376 K/uL (150-450); RED BLOOD CELL COUNT(AUTO) 3.33 MIL/uL (4.00-5.20)
[2022-10-16 07:45] LABS: CALCIUM, TOTAL 9.5 mg/dL (8.8-10.5); CREATININE 1.38 mg/dL (0.60-1.30); POTASSIUM 3.9 mmol/L (3.5-5.1)
[2022-10-16 08:01] VITALS: BP 131/65
[2022-10-16] MEDS: ABACAVIR SULFATE 300 MG TABLET PO SCH (08:42)
[2022-10-16] MEDS: TraMADol HCL 50 MG TABLET PO SCH (08:42)
[2022-10-16] MEDS: BuPROPion HCL XL 150 MG ER TABLET PO SCH (08:42)
[2022-10-16] MEDS: DOCUSATE SODIUM 100 MG CAPSULE PO SCH (08:43)
[2022-10-16] MEDS: ATORVASTATIN CALCIUM 40 MG TABLET PO SCH (08:43)
[2022-10-16] MEDS: PANTOPRAZOLE SODIUM 40 MG DR TABLET PO SCH (08:44)
[2022-10-16] MEDS: SERTRALINE HCL 50 MG TABLET PO SCH (08:44)
[2022-10-16] MEDS: DOLUTEGRAVIR SODIUM 50 MG TABLET PO SCH (08:44)
[2022-10-16] MEDS: ASPIRIN 81 MG DR TABLET PO SCH (08:44)
[2022-10-16] MEDS: BENZONATATE 100 MG CAPSULE PO PRN (08:44)
[2022-10-16] MEDS: GuaiFENesin SR 600 MG ER TABLET PO SCH (08:44)
[2022-10-16] MEDS: HEPARIN SODIUM,PORCINE 5,000 UNITS/ML VIAL SQ SCH (08:45)
[2022-10-16] MEDS: TIMOLOL MALEATE 0.5% 5 ML OPHTHALMIC SOLUTION OU SCH (08:45)
[2022-10-16] MEDS ORDERED: BENZ100C68 PO (10:46)
[2022-10-16] MEDS ORDERED: LEVO750T68 PO (10:46)
[2022-10-16 11:56] LABS: GLUCOMETER DEV NAME(LOC) 6N.2B; GLUCOSE,POINT OF CARE 115 MG/DL (70-110)
[2022-10-16 12:49] LABS: COVID AG,FIA SOURCE NASAL SWAB
== END 2022-10-16 14:56 | disposition home or self-care (01) | DRG 871 ==
LOC: EMS 12:02 → 6S 14:29
PROVIDERS: ADMIT Internal Medicine; ATTEND Internal Medicine
DX: A41.9 Sepsis, unspecified organism (principal); J18.9 Pneumonia, unspecified organism; U07.1 COVID-19; E87.20 Acidosis, unspecified; E11.65 Type 2 diabetes mellitus with hyperglycemia; N18.9 Chronic kidney disease, unspecified; J45.909 Unspecified asthma, uncomplicated; E78.5 Hyperlipidemia, unspecified; E11.22 Type 2 diabetes mellitus with diabetic chronic kidney disease; Z20.822 Contact with and (suspected) exposure to COVID-19; Z21 Asymptomatic human immunodeficiency virus [HIV] infection status; K21.9 Gastro-esophageal reflux disease without esophagitis; F41.9 Anxiety disorder, unspecified; Z90.49 Acquired absence of other specified parts of digestive tract; Z90.710 Acquired absence of both cervix and uterus
CPT/HCPCS: 71045; 71250; 80048; 82962; 83605; 84484; 85025; 86361; 87040; 93005; 94640; 99291; J0456; J0696; J1644; J1956; J7030; J7040; 36415-L1; 36415-TC; J7613